=== PATIENT | female | born 1965 ===

== ENCOUNTER → 2025-05-02 14:44 | Emergency (ER) | payer BC ==
[2025-05-02] MEDS: 50% Dextrose in Water 50 ML Syringe IVPUSH ONE ×4 (14:44)
[2025-05-02] MEDS: Calcium Chloride 10% 1 GM/10 ML Syringe IVPUSH ONE (14:44)
[2025-05-02 15:08] LABS: BASOPHILS ABSOLUTE AUTO 0.10 K/uL (0.00-0.20); BASOPHILS PERCENT AUTO 0.3 % (0.0-1.0); EOSINOPHILS ABSOLUTE AUTO 0.20 K/uL (0.00-0.45); EOSINOPHILS PERCENT AUTO 0.6 % (0.0-6.0); IMMATURE GRAN ABSOLUTE AUTO 1.41 K/uL (0.00-0.05); IMMATURE GRAN PERCENT AUTO 4.4 % (0.0-0.4); LYMPHOCYTES ABSOLUTE AUTO 8.43 K/uL (1.00-4.80); LYMPHOCYTES PERCENT AUTO 26.2 % (24.0-44.0); MEAN PLATELET VOLUME 11.1 fL (9.4-12.3); MONOCYTES ABSOLUTE AUTO 6.30 K/uL (0.00-0.80); MONOCYTES PERCENT AUTO 19.6 % (0.0-8.0); NEUTROPHILS ABSOLUTE AUTO 15.69 K/uL (1.80-7.70); NEUTROPHILS PERCENT AUTO 48.9 % (41.0-71.0); NRBC ABSOLUTE 0.51 K/uL (0.00-0.02); NRBC PERCENT 1.6 /100WBC (0.0-0.2); PLATELET COUNT,PLT 27 K/uL (150-400); RED BLOOD CELL COUNT 1.65 M/uL (4.10-5.30)
[2025-05-02 15:09] LABS: WHITE BLOOD CELL COUNT,WBC 32.13 K/uL (3.9-11.3)
[2025-05-02 15:26] LABS: A/G RATIO 0.3 (0.9-1.6); ALANINE AMINOTRANSFERASE,ALT 112 IU/L (14-63); ASPARTATE AMNIOTRANSFERASE,AST 388 IU/L (15-37); BILIRUBIN TOTAL 3.6 mg/dL (0.2-1.0); BLOOD UREA NITROGEN,BUN 59 mg/dL (7.0-18.0); CARBON DIOXIDE,CO2 5.7 mmol/L (21.0-32.0); CHLORIDE,CL 109 mmol/L (98-107); CREATINE KINASE,CK 1536 U/L (26-308); CREATININE 3.3 mg/dL (0.6-1.0); EST CRCL DRUG DOSING (CG) 16.72 mL/min; ESTIMATED GFR 16 mL/min (>60); ETHANOL BLOOD MEDICAL <3 mg/dL; GLUCOSE RANDOM 173 mg/dL (74-106); PROTEIN TOTAL,TP 4.6 g/dL (6.4-8.2); SODIUM,NA 139 mmol/L (136-145)
[2025-05-02 15:29] LABS: POTASSIUM,K 8.2 mmol/L (3.5-5.1)
== END | disposition expired ==
LOC: MW.ED 14:44 → EDBD 14:44
DX: I46.9 Cardiac arrest, cause unspecified (principal)
CPT/HCPCS: 36415; 80053; 80307; 82550; 83690; 83735; 84484; 85025; 92950; 96374; 96375; 99285; 99285-25; J0168; J3490; J7030